=== PATIENT | male | born 1995 | race African-American/Black ===

== ENCOUNTER 2016-09-19 12:08 | Emergency (ER) | payer SELFPAY ==
[2016-09-19] MEDS ORDERED: TETRACAINE HCL 0.5% OPH SOLN 2 ML ONE (13:50)
[2016-09-19] MEDS ORDERED: POLYMYXIN B SULFATE/TMP OPH SOLN 10 ML OD ONE (14:01)
--- NOTE | 2016-09-19 14:07 | ER Document Report ---
ED Eye Complaint - General Chief Complaint: Redness of Eye Stated Complaint: LEFT EYE IRRITATION Time Seen by Provider: 09/19/16 13:32 Mode of Arrival: Ambulatory Information source: Patient Notes: pt is a 21 year old male who presents to the ER today for right eye irritation after opening the oven at work at [employer] and having steam lutz into his right eye. He admits to irritation and redness, watering. TRAVEL OUTSIDE OF THE [place] IN LAST 30 DAYS: No - Related Data Allergies/Adverse Reactions: No Known Allergies Allergy (Unverified 09/19/16 14:16) Past Medical History - General Information source: Patient - Social History Smoking Status: Unknown if Ever Smoked Family History: Reviewed & Not Pertinent Patient has suicidal ideation: No Patient has homicidal ideation: No Renal/ Medical History: Denies: Hx Peritoneal Dialysis Review of Systems - Review of Systems Constitutional: No symptoms reported EENT: See HPI Cardiovascular: No symptoms reported Respiratory: No symptoms reported Gastrointestinal: No symptoms reported Genitourinary: No symptoms reported Male Genitourinary: No symptoms reported Musculoskeletal: No symptoms reported Skin: No symptoms reported Hematologic/Lymphatic: No symptoms reported Neurological/Psychological: No symptoms reported Physical Exam - Vital signs Vitals: Temp Pulse Resp BP Pulse Ox 98.1 F 79 18 140/92 H 98 09/19/16 12:19 09/19/16 12:19 09/19/16 12:19 09/19/16 12:19 09/19/16 12:19 - Notes Notes: PHYSICAL EXAMINATION: GENERAL: Well-appearing and in no acute distress. HEAD: Atraumatic, normocephalic. EYES: Pupils equal round and reactive to light, extraocular movements intact, sclera anicteric, conjunctivae watering, red sclera, no obvious foreign body, fluorescein stain reveals no ulceration, abrasion, foreign body. NECK: Normal range of motion, supple without lymphadenopathy LUNGS: CTAB and equal. No wheezes rales or rhonchi. HEART: Regular rate and rhythm without murmurs EXTREMITIES: Normal range of motion, no pitting edema. No cyanosis. NEUROLOGICAL: Cranial nerves grossly intact. Normal sensory/motor exams. PSYCH: Normal mood, normal affect. SKIN: Warm, Dry, normal turgor, no rashes or lesions noted - HEENT Visual acuity- Right eye: 20/20 Visual acuity- Left eye: 20/15 Visual acuity- Both eyes: 20/20 Corrective lenses worn: No Course - Re-evaluation Re-evalutation: 09/19/16 14:06 Patient sent home with antibiotic eyedrop. Eye exam just showed redness, irritation and watering today. Visual acuity was normal. - Vital Signs Vital signs: Temp Pulse Resp BP Pulse Ox 98.1 F 61 16 140/80 H 100 09/19/16 14:41 09/19/16 14:41 09/19/16 14:41 09/19/16 14:41 09/19/16 14:41 Procedures - Eye Procedure Right Time completed: 14:08 Eye Irrigated w/ Saline (ccs): 30 Alcaine Drops Administered: Yes Fluorescein applied: Right Antibiotic Oinment/Drps Admin: Right eye Slit lamp used: No Discharge - Discharge Clinical Impression: Right eye injury Qualifiers: Encounter type: initial encounter Qualified Code(s): S05.91XA - Unspecified injury of right eye and orbit, initial encounter Condition: Stable Disposition: HOME, SELF-CARE Instructions: Eyedrop Use ([facility]) Additional Instructions: use eyedrops in right eye every 3 hours for 7 days while awake. Return immediately for any new or worsening symptoms. Follow up with primary care provider, call tomorrow to make followup appointment. Forms: Return to Work
[2016-09-19] MEDS ORDERED: TETRACAINE HCL 0.5% OPH SOLN 2 ML OD ONE (14:09)
[2016-09-19 14:42] VITALS: BP 140/80
== END 2016-09-19 14:42 | disposition home or self-care (01) ==
LOC: ER 12:08
DX: S05.91XA Unspecified injury of right eye and orbit, initial encounter (principal); H57.11 Ocular pain, right eye; X58.XXXA Exposure to other specified factors, initial encounter
CPT/HCPCS: 99282; J3490

== ENCOUNTER 2017-06-18 07:57 | Emergency (ER) | payer OTHER ==
[2017-06-18] MEDS ORDERED: TETRACAINE HCL 0.5% OPH SOLN 2 ML ONE (08:22)
--- NOTE | 2017-06-18 08:35 | ER Document Report ---
ED General - General Chief Complaint: Eye Problem Stated Complaint: EYE PROBLEM Mode of Arrival: Ambulatory Information source: Patient TRAVEL OUTSIDE OF THE [place] IN LAST 30 DAYS: No - HPI Notes: 21-year-old male presents today with complaints of right eye pain approximately 4 days ago. States he has photosensitivity. Reports it is very irritated. Pain is 5/10, throbbing. denies any blurred vision, double vision, loss of vision. pt is sitting in a dark room while I am interviewing him, Denies having any foreign body in his eye that he can recall. Has not tried any over- the-counter pain medications. Has not tried irrigating on his eye. Reports worse with time, nothing makes better. Patient does not wear contacts. Denies fevers, chills, chest pain,palpitations, shortness of breath, dyspnea, nausea , vomiting, diarrhea, abdominal pain, hematuria,blurred vision, double vision, loss of vision, speech changes, LH, dizziness, syncope, headaches, wheezing, ST , URI, neck pain, weakness, bowel or bladder dysfunction, saddle anesthesia, numbness or tingling in bilateral upper or lower extremities equally, muscle paralysis, weakness in bilateral upper or lower extremities equally or rash. Denies IV drug use. - Related Data Allergies/Adverse Reactions: No Known Allergies Allergy (Verified 06/18/17 07:58) Past Medical History - General Information source: Patient - Social History Smoking Status: Current Every Day Smoker Chew tobacco use (# tins/day): No Frequency of alcohol use: None Drug Abuse: None Family History: Reviewed & Not Pertinent Patient has suicidal ideation: No Patient has homicidal ideation: No Renal/ Medical History: Denies: Hx Peritoneal Dialysis Past Surgical History: Reports: Hx Tonsillectomy - Immunizations Hx Diphtheria, Pertussis, Tetanus Vaccination: Yes Review of Systems - Review of Systems Notes: REVIEW OF SYSTEMS: CONSTITUTIONAL : Denies fever, chills, or sweats. Denies recent illness. EENT: reports right eye pain, denies left eye, ear, throat, or mouth pain or symptoms. Denies nasal or sinus congestion or discharge. Denies throat, tongue , or mouth swelling or difficulty swallowing. CARDIOVASCULAR: Denies chest pain. Denies palpitations or racing or irregular heart beat. Denies ankle edema. RESPIRATORY: Denies cough, cold, or chest congestion. Denies shortness of breath, difficulty breathing, or wheezing. GASTROINTESTINAL: Denies abdominal pain or distention. Denies nausea, vomiting , or diarrhea. Denies blood in vomitus, stools, or per rectum. Denies black, tarry stools. Denies constipation. GENITOURINARY: Denies difficulty urinating, painful urination, burning, frequency, blood in urine, or discharge. MUSCULOSKELETAL: Denies back or neck pain or stiffness. Denies joint pain or swelling. SKIN: Denies rash, lesions or sores. HEMATOLOGIC : Denies easy bruising or bleeding. LYMPHATIC: Denies swollen, enlarged glands. NEUROLOGICAL: Denies confusion or altered mental status. Denies passing out or loss of consciousness. Denies dizziness or lightheadedness. Denies headache. Denies weakness or paralysis or loss of use of either side. Denies problems with gait or speech. Denies sensory loss, numbness, or tingling. Denies seizures. PSYCHIATRIC: Denies anxiety or stress. Denies depression, suicidal ideation, or homicidal ideation. ALL OTHER SYSTEMS REVIEWED AND NEGATIVE. Dictation was performed using [employer] voice recognition software PHYSICAL EXAMINATION: GENERAL: Well-appearing, well-nourished and in no acute distress. HEAD: Atraumatic, normocephalic. EYES:right conjunctiva with erythema. Fluostain negative for corneal abrasion, foreign body, dendrites or ulcer. no uptake noted on right. PERRLA, EMOI. Red reflex wnl. Normal fundi and optic discs. No nystagmus bilaterally. No ptosis. Corneas grossly clear. Pupils equal round and reactive to light, extraocular movements intact, sclera anicteric, ENT: Nares patent, oropharynx clear without exudates. Moist mucous membranes. NECK: Normal range of motion, supple without lymphadenopathy LUNGS: Breath sounds clear to auscultation bilaterally and equal. No wheezes rales or rhonchi. HEART: Regular rate and rhythm without murmurs ABDOMEN: Soft, nontender, nondistended abdomen. No guarding, no rebound. No masses appreciated. Musculoskeletal: Normal range of motion, no pitting or edema. No cyanosis. NEUROLOGICAL: Cranial nerves grossly intact. Normal speech, normal gait. Normal sensory, motor exams PSYCH: Normal mood, normal affect. SKIN: Warm, Dry, normal turgor, no rashes or lesions noted. vision: 20/20 left 20/25 right 20/20 bilaterally tonometer pressure was 28 Physical Exam - Vital signs Vitals: Temp Pulse Resp BP Pulse Ox 98.6 F 95 16 146/84 H 100 06/18/17 08:05 06/18/17 08:05 06/18/17 08:05 06/18/17 08:05 06/18/17 08:05 Course - Re-evaluation Re-evalutation: 06/18/17 10:[address] Aaron Claros MD, [facility] on-call at [phone], regarding patient's right conjunctivitis with no uptake noted on for staining for any foreign body, corneal abrasion or corneal ulcer. Patient did have a general pressure of 28 on his right eye. this provider has concern of iritis. , verbalized that he likely has conjunctivitis, but he will evaluate him tomorrow in the office for uveitis. Advised him to start on ophthalmic ciprofloxacin as directed. Appointment was made for this patient for 130 tomorrow afternoon in his office. Discussed findings with patient patient agreed to go to appointment tomorrow, advised him to apply warm compress to site 20 minutes on 20 minutes off. Work note was given. Patient was given antibiotic drops while in ER to have one person. Advised him to take over-the- counter ibuprofen and Tylenol as needed for pain. If any symptoms become more such as blurred vision, double vision, loss of vision, fever, severe headache, numbness or tingling down bilateral upper extremities, speech changes, etc. to return to the emergency room as soon as possible. 06/18/17 10:22 After performing a Medical Screening Examination, I estimate there is LOW risk for a RETAINED CORNEAL or LID FOREIGN BODY, DEEP SPACE INFECTION (e.g., ORBITAL CELLULITIS OR ABSCESS), ACUTE GLAUCOMA, PENETRATING GLOBE INJURY, RETINAL DETACHMENT, or MENINGITIS thus I consider the discharge disposition reasonable. I have reevaluated this patient multiple times and no significant life threatening changes are noted. Also, there is no evidence or peritonitis, sepsis , or toxicity. The patient and I have discussed the diagnosis and risks, and we agree with discharging home with outpatient follow-up with the understanding that symptoms and presentations can change. We also discussed returning to the Emergency Department immediately if new or worsening symptoms occur. We have discussed the symptoms which are most concerning (e.g., changing or worsening pain, vision changes, neck stiffness or fever) that necessitate immediate return. 06/18/17 11:55 - Vital Signs Vital signs: Temp Pulse Resp BP Pulse Ox 98.9 F 72 16 135/80 H 100 06/18/17 10:37 06/18/17 10:37 06/18/17 08:05 06/18/17 10:37 06/18/17 10:37 Discharge - Discharge Clinical Impression: Conjunctivitis Qualifiers: Conjunctivitis type: acute Acute conjunctivitis type: unspecified Laterality: right Qualified Code(s): H10.31 - Unspecified acute conjunctivitis, right eye Clinical Impression: (Ruled Out): Conjunctivitis due to adenovirus, right eye Condition: Good Disposition: HOME, SELF-CARE Instructions: Antibiotic Therapy ([facility]), Conjunctivitis ([facility]), Eyedrop Use ([facility]) Additional Instructions: Conjunctivitis You have an infection in your eye, commonly known as "pink eye." Conjunctivitis causes redness, mild discomfort, itching, and mattering on the eyelids. It is very contagious, so you must be careful to wash your hands after touching your face so you don't pass the infection on to others. Conjunctivitis is caused by both viruses and bacteria. It usually responds quickly to treatment with antibiotic drops. These should be placed in the eye as prescribed (usually every three to four hours while you're awake). If you wear contact lenses, don't put them in your eyes until the infection is cleared and you are no longer using the drops (unless your doctor advises you otherwise). Should you develop increasing eye pain, severe swelling, decreased vision, or fail to improve as expected, please return for re-examination. Follow-up with Dr. Claros, the neurologist, tomorrow at 130 which is already scheduled appointment for you for further evaluation of your conjunctivitis. you were given antibiotic eyedrops in the emergency room today, ciprofloxacin, 1-2 drops every 2 hours while awake for day 1 and 2 and then 1-2 drops every 4 hours between day 3 and 7. Compress to eye 20 minutes on 20 minutes off several times a day. If symptoms become worse such as loss of vision, blurred vision, double vision, high fever, severe headache, etc. return to the emergency room as soon as possible. Return immediately for any new or worsening symptoms. Follow up with primary care provider, call tomorrow to make followup appointment. Prescriptions: Ciprofloxacin HCl [Ciloxan 0.3% Oph Soln 2.5 ml] 1 drop OP DAILY #1 bottle Forms: Return to Work Referrals: AARON CLAROS DO [ACTIVE STAFF] - Follow up tomorrow (appt at 1:30 pm)
[2017-06-18] MEDS ORDERED: CIPROFLOXACIN HCL 0.3% OPH SOLN 2.5 ML OD ONE (10:17)
[2017-06-18 10:38] VITALS: BP 135/80
== END 2017-06-18 10:37 | disposition home or self-care (01) ==
LOC: ER 07:57
DX: H10.31 Unspecified acute conjunctivitis, right eye (principal); F17.200 Nicotine dependence, unspecified, uncomplicated
CPT/HCPCS: 99283; J3490